=== PATIENT | male | born 2000 | race Caucasian/White ===

== ENCOUNTER 2021-01-11 16:37 | Emergency (ER) | payer MEDICAID ==
--- NOTE | 2021-01-11 17:22 | EDM.PDOC ---
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 pt report mild dry cough and an emesis this morning, denies any other associated sx or any other medical concerns. headache Pain Score (Numeric/FACES): 6 - Related Data Allergies Allergy/AdvReac Type Severity Reaction Status Date / Time No Known Allergies Allergy Verified 01/11/21 17:11 Home Meds: Home Meds Amphetamine/Dextroamphetamine [Adderall XR] 20 mg PO DAILY 01/11/21 [History] Amphetamine/Dextroamphetamine [Adderall XR] 30 mg PO DAILY 01/11/21 [History] ED ROS GENERAL - Review of Systems Review Of Systems: See Below Constitutional: Reports: Fever, Chills, Fatigue HEENT: Reports: No Symptoms Respiratory: Reports: Cough. Denies: Shortness of Breath, Wheezing Cardiovascular: Reports: No Symptoms Endocrine: Reports: No Symptoms GI/Abdominal: Reports: Nausea, Vomiting. Denies: Bloody Stool, Constipation, Diarrhea, Distension, Mucous in Stool Musculoskeletal: Reports: No Symptoms Skin: Reports: No Symptoms Neurological: Reports: Headache ED EXAM, GENERAL - Physical Exam Exam: See Below Exam Limited By: No Limitations General Appearance: Alert, Mild Distress Eye Exam: Bilateral Eye: Normal Inspection Ears: Normal External Exam, Normal TMs Nose: Normal Inspection, Normal Mucosa Throat/Mouth: Normal Inspection, Normal Lips, Normal Oropharynx Head: Atraumatic Neck: Normal Inspection, Supple, Non-Tender Respiratory/Chest: No Respiratory Distress, Lungs Clear Cardiovascular: Normal Peripheral Pulses, Regular Rate, Rhythm Course - Vital Signs Text/Narrative:: CXR shows RLL pneumonia, labs shows WBC at 18 k, pt is stable for outpatient mng , was given Rocephin here and will be placed on Levaquin, F/U in 2 days with PCP. supportive mng was discussed. Last Recorded V/S: Last Vital Signs Temp 39.4 C H 01/11/21 18:46 Pulse 118 H 01/11/21 18:46 Resp 20 01/11/21 17:08 BP 122/45 L 01/11/21 17:08 Pulse Ox 99 01/11/21 17:08 - Orders/Labs/Meds Orders: Active Orders 24 hr Category Date Time Status Chest 2V [CR] Stat Exams 01/11/21 18:41 Taken Sodium Chloride 0.9% [Normal Saline] 1,000 ml Med 01/11/21 17:23 Active IV .BOLUS Sodium Chloride 0.9% [Saline Flush] Med 01/11/21 17:58 Active 10 ml FLUSH ASDIRECTED PRN Isolation [COMM] Routine Oth 01/11/21 17:24 Ordered Medication Orders Sodium Chloride (Normal Saline) 1,000 mls @ 999 drops/hr IV .BOLUS ONE Stop: 01/12/21 08:23 Last Admin: 01/11/21 17:45 Dose: 999 drops/hr Documented by: BO Sodium Chloride (Sodium Chloride 0.9% 10 Ml Syringe) 10 ml FLUSH ASDIRECTED PRN PRN Reason: Keep Vein Open Last Admin: 01/11/21 17:45 Dose: 10 ml Documented by: BO Labs: Laboratory Tests 01/11/21 01/11/21 01/11/21 Range/Units 17:00 17:15 17:45 WBC 18.7 H (3.2-10.1) x10-3/uL RBC 5.07 (3.90-5.90) x10(6)uL Hgb 14.2 (12.9-17.7) g/dL Hct 43.6 (38.3-50.1) % MCV 85.9 (80.8-98.7) fL MCH 28.0 (27.0-33.3) pg MCHC 32.6 (28.7-35.3) g/dL RDW 13.1 (12.4-15.0) % Plt Count 246 (117-477) x10(3)uL Sodium (135-145) mmol/L Potassium (3.5-5.3) mmol/L Chloride (100-110) mmol/L Carbon Dioxide (21-32) mmol/L BUN (7-18) mg/dL Creatinine (0.70-1.30) mg/dL Est Cr Clr Drug Dosing mL/min Estimated GFR (MDRD) (>60) BUN/Creatinine Ratio (9-20) Glucose (80-116) mg/dL Calcium (8.6-10.2) mg/dL Total Bilirubin (0.1-1.3) mg/dL AST (5-25) IU/L ALT (12-36) U/L Alkaline Phosphatase (56-112) IU/L Total Protein (6.0-8.0) g/dL Albumin (3.5-5.2) g/dL Globulin g/dL Albumin/Globulin Ratio Urine Color Yellow (YELLOW) Urine Appearance Clear (CLEAR) Urine pH 8.0 H (5.0-6.5) Ur Specific [place] 1.015 (1.010-1.025) Urine Protein Negative (NEGATIVE) mg/dL Urine Glucose (UA) Normal (NORMAL) mg/dL Urine Ketones Negative (NEGATIVE) mg/dL Urine Occult Blood Negative (NEGATIVE) Urine Nitrite Negative (NEGATIVE) Urine Bilirubin Negative (NEGATIVE) Urine Urobilinogen Normal (NEGATIVE) mg/dL Ur Leukocyte Esterase Negative (NEGATIVE) Urine RBC 0-5 (0-5) Urine WBC 0-5 (0-5) Ur Squamous Epith Cells Occasional (NS,R,O) Urine Bacteria Few H (NS) SARS-CoV-2 RNA (BRITTANY) Negative (NEGATIVE) 01/11/21 Range/Units 17:45 WBC (3.2-10.1) x10-3/uL RBC (3.90-5.90) x10(6)uL Hgb (12.9-17.7) g/dL Hct (38.3-50.1) % MCV (80.8-98.7) fL MCH (27.0-33.3) pg MCHC (28.7-35.3) g/dL RDW (12.4-15.0) % Plt Count (117-477) x10(3)uL Sodium 141 (135-145) mmol/L Potassium 3.7 (3.5-5.3) mmol/L Chloride 101 (100-110) mmol/L Carbon Dioxide 27 (21-32) mmol/L BUN 17 (7-18) mg/dL Creatinine 1.5 H (0.70-1.30) mg/dL Est Cr Clr Drug Dosing 91.33 mL/min Estimated GFR (MDRD) 60 (>60) BUN/Creatinine Ratio 11.3 (9-20) Glucose 92 (80-116) mg/dL Calcium 9.0 (8.6-10.2) mg/dL Total Bilirubin 1.1 (0.1-1.3) mg/dL AST 22 (5-25) IU/L ALT 61 H (12-36) U/L Alkaline Phosphatase 52 L (56-112) IU/L Total Protein 7.3 (6.0-8.0) g/dL Albumin 3.9 (3.5-5.2) g/dL Globulin 3.4 g/dL Albumin/Globulin Ratio 1.2 Urine Color (YELLOW) Urine Appearance (CLEAR) Urine pH (5.0-6.5) Ur Specific [place] (1.010-1.025) Urine Protein (NEGATIVE) mg/dL Urine Glucose (UA) (NORMAL) mg/dL Urine Ketones (NEGATIVE) mg/dL Urine Occult Blood (NEGATIVE) Urine Nitrite (NEGATIVE) Urine Bilirubin (NEGATIVE) Urine Urobilinogen (NEGATIVE) mg/dL Ur Leukocyte Esterase (NEGATIVE) Urine RBC (0-5) Urine WBC (0-5) Ur Squamous Epith Cells (NS,R,O) Urine Bacteria (NS) SARS-CoV-2 RNA (BRITTANY) (NEGATIVE) Meds: Medications Generic Name Dose Route Start Last Admin Trade Name Freq PRN Reason Stop Dose Admin Sodium Chloride 1,000 mls @ 999 drops/hr 01/11/21 17:23 01/11/21 17:45 Normal Saline IV 01/12/21 08:23 999 drops/hr .BOLUS ONE Administration Sodium Chloride 10 ml 01/11/21 17:58 01/11/21 17:45 Sodium Chloride 0.9% 10 Ml Syringe FLUSH 10 ml ASDIRECTED PRN Administration Keep Vein Open Discontinued Medications Generic Name Dose Route Start Last Admin Trade Name Freq PRN Reason Stop Dose Admin Acetaminophen 650 mg 01/11/21 17:23 01/11/21 17:45 Acetaminophen 325 Mg Tab PO 01/11/21 17:24 650 mg NOW ONE Administration Ondansetron HCl 4 mg 01/11/21 17:23 01/11/21 17:45 Ondansetron 4 Mg/2 Ml Sdv IVPUSH 01/11/21 17:24 4 mg ONETIME ONE Administration Departure - Departure Time of Disposition: 19:28 Disposition: Home, Self-Care 01 Clinical Impression: Pneumonia - Discharge Information Referrals: PCP,None [Primary Care Provider] - Forms: ED Department Discharge Sepsis Event Note (ED) - Evaluation Sepsis Screening Result: No Definite Risk - Focused Exam Vital Signs: Vital Signs Temp Pulse Resp BP Pulse Ox 01/11/21 18:46 39.4 C H 118 H 01/11/21 17:45 39.9 C H 01/11/21 17:08 39.7 C H 135 H 20 122/45 L 99 - My Orders Last 24 Hours: My Active Orders 01/11/21 17:23 Sodium Chloride 0.9% [Normal Saline] 1,000 ml IV .BOLUS 01/11/21 17:24 Isolation [COMM] Routine 01/11/21 17:58 Sodium Chloride 0.9% [Saline Flush] 10 ml FLUSH ASDIRECTED PRN 01/11/21 18:41 Chest 2V [CR] Stat - Assessment/Plan Last 24 Hours: My Active Orders 01/11/21 17:23 Sodium Chloride 0.9% [Normal Saline] 1,000 ml IV .BOLUS 01/11/21 17:24 Isolation [COMM] Routine 01/11/21 17:58 Sodium Chloride 0.9% [Saline Flush] 10 ml FLUSH ASDIRECTED PRN 01/11/21 18:41 Chest 2V [CR] Stat
[2021-01-11] MEDS ORDERED: Acetaminophen 325 MG Tab PO ONE (17:23)
[2021-01-11] MEDS ORDERED: Sodium Chloride 0.9% 1,000 ML IV ONE (17:23)
[2021-01-11] MEDS ORDERED: Ondansetron 4 MG/2 ML SDV IVPUSH ONE (17:23)
[2021-01-11] MEDS ORDERED: Sodium Chloride 0.9% 10 ML Syringe FLUSH PRN (17:58)
[2021-01-11] MEDS ORDERED: cefTRIAXone 1 GM Vial IM ONE (19:28)
[2021-01-11] MEDS ORDERED: Levofloxacin 500 MG Tab PO ONE (19:28)
[2021-01-11] MEDS ORDERED: cefTRIAXone 1 GM Vial IVPUSH ONE (19:33)
--- NOTE | 2021-01-12 10:27 | CR ---
INDICATION: Fever, high white count. CHEST, TWO VIEWS: PA and lateral views of the chest were obtained 01/11/21 - no comparisons. Infiltration is noted with some consolidation in the middle lobe compatible with an area of consolidating pneumonia. No significant pleural effusion was identified. Heart, mediastinum, and bony structures were unremarkable allowing for the poor inspiration. IMPRESSION: Right middle lobe consolidating area of lung compatible with pneumonia - correlate clinically. MTDD
== END 2021-01-11 19:56 | disposition home or self-care (01) ==
LOC: FB.ED 16:37
DX: J18.9 Pneumonia, unspecified organism (principal); Z20.822 Contact with and (suspected) exposure to COVID-19
CPT/HCPCS: 36415; 71046; 80053; 81001; 85027; 87635; 87804; 96374; 96375; 99284; A9270; J0696; J2405; J7030; U0002